=== PATIENT | female | born 1990 ===

== ENCOUNTER 2022-08-02 19:15 | Outpatient (REF) | payer OTHER, SELFPAY ==
[2022-08-02 19:35] LABS: Basophils Absolute Auto 0.03 K/uL (0.00-0.30); Basophils Percent Auto 0.4 % (0.0-3.0); Eosinophils Absolute Auto 0.11 K/uL (0.00-0.50); Eosinophils Percent Auto 1.5 % (0.0-7.0); Hematocrit 43.9 % (33.0-51.0); Hemoglobin* 14.2 gm/dL (12.0-16.0); Immature Granulocytes Abs Auto 0.01 K/uL (0.00-0.30); Immature Granulocytes Pct Auto 0.1 %; Lymphocytes Absolute Auto 1.81 K/uL (0.90-2.90); Lymphocytes Percent Auto 24.2 % (20-44); Mean Corpuscular HGB Conc 32 gm/dL (32-36); Mean Corpuscular Hemoglobin 31 pg (26-34); Mean Corpuscular Volume 95 fL (80-100); Neutrophils Absolute Auto 5.08 K/uL (1.7-7.0); Neutrophils Percent Auto 67.8 % (42.0-72.0); Platelet Count* 302 K/uL (140-440); RDW Coefficient of Variation % 12.3 % (11.5-15.5); Red Blood Count 4.64 m/uL (4.00-5.20); White Blood Count* 7.49 K/uL (4.50-11.00)
[2022-08-02 19:40] LABS: Slide Review Reflex No
[2022-08-05 05:56] LABS: Rheumatoid Factor <10 IU/mL (0-14)
[2022-08-05 08:39] LABS: Anti-Nuclear Ab(ANA)IgG ELISA None Detected (None Detected)
== END 2022-08-02 19:16 | disposition home or self-care (01) ==
LOC: NPINS 19:15
PROVIDERS: Visit Provider Physician Assistant Medical
DX: T69.1XXA Chilblains, initial encounter (principal); X31.XXXA Exposure to excessive natural cold, initial encounter
CPT/HCPCS: 85025; 86039; 86431